=== PATIENT | male | born 1970 | race Caucasian/White ===

== ENCOUNTER 2016-12-28 19:15 | Emergency (ER) | payer MEDICARE, MEDICAID ==
[~2016-12-28] VITALS: Ht 182.9 cm; Wt 100.4 kg
[2016-12-28 19:16] VITALS: BP 136/74
== END 2016-12-28 20:07 | disposition home or self-care (01) ==
LOC: ED 20:01
DX: Z00.8 Encounter for other general examination (principal); F20.9 Schizophrenia, unspecified
CPT/HCPCS: 99284

== ENCOUNTER 2017-05-11 21:02 | Emergency (ER) | payer MEDICARE, MEDICAID ==
[~2017-05-11] VITALS: Ht 182.9 cm; Wt 99.8 kg
[2017-05-11 21:02] VITALS: BP 128/74
[2017-05-11] MEDS ORDERED: DIVA125T2 PO (21:46)
[2017-05-11] MEDS ORDERED: OMEG-76 PO (21:47)
[2017-05-11] MEDS ORDERED: OLAN2.5T3 PO (21:47)
[2017-05-11] MEDS ORDERED: HALO5TAB5 PO (21:47)
[2017-05-11] MEDS ORDERED: BENZ2AMP4 INJ (21:48)
== END 2017-05-11 22:40 | disposition home or self-care (01) ==
LOC: ED 22:12
DX: F20.0 Paranoid schizophrenia (principal); F17.200 Nicotine dependence, unspecified, uncomplicated
CPT/HCPCS: 99283

== ENCOUNTER 2017-05-13 19:15 | Emergency (ER) | payer MEDICARE, MEDICAID ==
[~2017-05-13] VITALS: Ht 182.9 cm; Wt 100.3 kg
[~2017-05-13 19:15] MED LIST: BENZ2AMP4 INJ; DIVA125T2 PO; HALO5TAB5 PO; OLAN2.5T3 PO; OMEG-76 PO
[2017-05-13 19:56] LABS: BASOPHILS # (AUTO) 0.07 x10^3/uL (0-0.1); BASOPHILS % (AUTO) 1 % (0-1); EOSINOPHILS % (AUTO) 1 % (1-7); LYMPHOCYTES # (AUTO) 2.33 x10^3/uL (1-3.4); LYMPHOCYTES % (AUTO) 26 % (22-44); MD NO; MEAN CORPUSCULAR HEMOGLOBIN 31.2 pg (27.5-34.5); MEAN CORPUSCULAR HGB CONC 34.3 g/dL (33.2-36.2); MEAN CORPUSCULAR VOLUME 90.9 fL (81-97); MEAN PLATELET VOLUME 8.6 fL (7.4-10.4); MONOCYTES # (AUTO) 0.61 x10^3/uL (0.2-0.8); MONOCYTES % (AUTO) 7 % (2-9); NEUTROPHILS # (AUTO) 5.73 x10^3/uL (1.8-6.8); NEUTROPHILS % (AUTO) 65 % (42-75); PLATELET COUNT 316 x10^3/uL (130-400); RED BLOOD COUNT 4.99 x10^6/uL (4.38-5.82); RED CELL DISTRIBUTION WIDTH 13.8 % (9.4-14.8)
[2017-05-13 20:07] LABS: ALBUMIN 3.5 g/dL (3.4-5.0); ANION GAP 8 mmol/L (5-15); CALCIUM 8.8 mg/dL (8.5-10.1); CHLORIDE 108 mmol/L (98-107); CREATININE 0.99 mg/dL (0.7-1.3)
[2017-05-13 20:10] LABS: TROPONIN I < 0.015 ng/mL (0.000-0.045)
[2017-05-13 20:45] VITALS: BP 136/81
== END 2017-05-13 21:54 | disposition home or self-care (01) ==
LOC: ED 20:15
DX: R06.00 Dyspnea, unspecified (principal); F17.210 Nicotine dependence, cigarettes, uncomplicated; Z59.0 Homelessness
CPT/HCPCS: 36415; 71045; 80048; 82040; 84484; 85025; 93005; 99285